=== PATIENT | female | born 1940 | race Caucasian/White ===

== ENCOUNTER → 2016-12-01 | Outpatient (CLI) | payer OTHER ==
[~2016-12-01] MED LIST: AMLO10TA2 PO; CITA20TA9 PO; CLB/200 PO; CRS/10 PO; DVN/160 PO; TRIATAB3 PO
[2016-12-01 11:45] LABS: HEMATOCRIT 33.6 % (37-47); MEAN CELL VOLUME 88.9 fL (80-100); MEAN CORPUSCULAR HEMOGLOBIN 28.8 pg (25-34); MEAN CORPUSCULAR HGB CONC 32.4 g/dl (32-36); MEAN PLATELET VOLUME 9.6 fL (7.4-10.4); PLATELET COUNT 248 K/uL (130-400); RED BLOOD COUNT 3.78 M/uL (4.2-5.4); WHITE BLOOD COUNT 5.77 K/uL (4.8-10.8)
[2016-12-01 11:48] LABS: URINE APPEARANCE CLEAR (CLEAR); URINE BILIRUBIN NEG (NEG); URINE COLOR YELLOW; URINE EPITHELIAL CELL AUTO >30 /lpf (0-5); URINE NITRITE NEG (NEG); URINE SPECIFIC GRAVITY 1.018 (1.000-1.030); UROBILINOGEN NEG (NEG)
[2016-12-01 11:55] LABS: MANUAL MICROSCOPIC REQUIRED? NO; REVIEW REQ? NO
[2016-12-01 11:57] LABS: BLOOD UREA NITROGEN 32 mg/dl (7-18); BUN/CREATININE RATIO 18.9 (10-20); CALCIUM 8.9 mg/dl (8.5-10.1); CARBON DIOXIDE 21 mmol/L (21-32); CHLORIDE 110 mmol/L (98-107); GLUCOSE 106 mg/dl (70-99); POTASSIUM 4.6 mmol/L (3.5-5.1); SODIUM 142 mmol/L (136-145)
[2016-12-01 11:58] LABS: PHOSPHORUS 2.8 mg/dl (2.5-4.9)
[2016-12-01 12:11] LABS: URINE PROTIEN/CREAT RATIO 0.1 (0-0.2); URINE TOTAL PROTEIN 19.6 mg/dl (0-11.9)
== END | disposition home or self-care (01) ==
LOC: C.LAB 09:55
PROVIDERS: ATTEND Internal Medicine Nephrology
DX: I12.9 Hypertensive chronic kidney disease with stage 1 through stage 4 chronic kidney disease, or unspecified chronic kidney disease (principal); N18.4 Chronic kidney disease, stage 4 (severe); D64.9 Anemia, unspecified; E55.9 Vitamin D deficiency, unspecified; R31.29 Other microscopic hematuria

== ENCOUNTER → 2017-06-01 | Outpatient (CLI) | payer OTHER ==
[2017-06-01 10:10] LABS: HEMATOCRIT 33.8 % (37-47); MEAN CELL VOLUME 90.1 fL (80-100); MEAN CORPUSCULAR HEMOGLOBIN 28.8 pg (25-34); PLATELET COUNT 302 K/uL (130-400); RED BLOOD COUNT 3.75 M/uL (4.2-5.4); WHITE BLOOD COUNT 6.68 K/uL (4.8-10.8)
[2017-06-01 10:10] LABS: URINE APPEARANCE CLEAR (CLEAR); URINE BILIRUBIN NEG (NEG); URINE COLOR YELLOW; URINE EPITHELIAL CELL AUTO 20-30 /lpf (0-5); URINE NITRITE NEG (NEG); URINE PH 5.5 (4.5-7.5); URINE SPECIFIC GRAVITY 1.016 (1.000-1.030); UROBILINOGEN NEG (NEG)
[2017-06-01 10:12] LABS: MANUAL MICROSCOPIC REQUIRED? NO; REVIEW REQ? YES
[2017-06-01 10:36] LABS: URINE PROTIEN/CREAT RATIO 0.1 (0-0.2); URINE TOTAL PROTEIN 15.6 mg/dl (0-11.9)
[2017-06-01 10:44] LABS: ALT/SGPT 20 U/L (12-78); BLOOD UREA NITROGEN 39 mg/dl (7-18); BUN/CREATININE RATIO 20.3 (10-20); CALCIUM 8.9 mg/dl (8.5-10.1); CARBON DIOXIDE 24 mmol/L (21-32); CHLORIDE 109 mmol/L (98-107); GLUCOSE 87 mg/dl (70-99); SODIUM 139 mmol/L (136-145)
[2017-06-01 10:47] LABS: ALKALINE PHOSPHATASE 79 U/L (45-117); AST/SGOT 23 U/L (15-37)
== END | disposition home or self-care (01) ==
LOC: C.LAB 08:52
PROVIDERS: ATTEND Internal Medicine Nephrology
DX: I12.9 Hypertensive chronic kidney disease with stage 1 through stage 4 chronic kidney disease, or unspecified chronic kidney disease (principal); N18.4 Chronic kidney disease, stage 4 (severe); D64.9 Anemia, unspecified; E55.9 Vitamin D deficiency, unspecified

== ENCOUNTER → 2017-06-08 | Outpatient (CLI) | payer OTHER ==
[2017-06-08 15:48] LABS: URINE APPEARANCE CLEAR (CLEAR); URINE BILIRUBIN NEG (NEG); URINE COLOR YELLOW; URINE NITRITE NEG (NEG); URINE SPECIFIC GRAVITY 1.019 (1.000-1.030); UROBILINOGEN NEG (NEG); ZZUR CULT IF INDIC CLEAN CATCH YES
[2017-06-08 15:49] LABS: MANUAL MICROSCOPIC REQUIRED? NO; REVIEW REQ? NO
--- NOTE | 2017-06-16 12:28 | CODING QUERY MEDICAL NECESSITY ---
CQSUPPORTING DIAGNOSIS NEEDED A supporting diagnosis is required for the test/procedure performed on this patient in order for us to be reimbursed by the patient's insurance. Please provide a supporting diagnosis for the following test/procedure listed below next to the test name along with your signature. *If there is no additional diagnosis for this patient that would support the following test/procedure please document that below next to the test/procedure. Test(s)/Procedure(s) that require a supporting diagnosis: DOS 06/08/17 URINE CULTURE TEST Provider Signature: Date: Thank you Lorie Hunt [facility] Information Management Once completed, please kindly fax back to [phone] For questions please call [phone]
== END | disposition home or self-care (01) ==
LOC: C.LAB1850 14:06
PROVIDERS: ATTEND Internal Medicine Nephrology
DX: N18.4 Chronic kidney disease, stage 4 (severe) (principal); N30.90 Cystitis, unspecified without hematuria

== ENCOUNTER → 2017-12-03 | Outpatient (CLI) | payer OTHER ==
[2017-12-03 10:41] LABS: ALBUMIN 3.6 gm/dl (3.4-5.0); BLOOD UREA NITROGEN 44 mg/dl (7-18); CALCIUM 8.7 mg/dl (8.5-10.1); CARBON DIOXIDE 21 mmol/L (21-32); CREATININE 2.11 mg/dl (0.60-1.20); GLUCOSE 86 mg/dl (70-99); POTASSIUM 4.8 mmol/L (3.5-5.1); SODIUM 139 mmol/L (136-145)
[2017-12-03 10:42] LABS: HEMATOCRIT 27.1 % (37-47); HEMOGLOBIN 8.6 g/dL (12.0-16.0); MEAN CELL VOLUME 82.1 fL (80-100); MEAN CORPUSCULAR HEMOGLOBIN 26.1 pg (25-34); MEAN CORPUSCULAR HGB CONC 31.7 g/dl (32-36); MEAN PLATELET VOLUME 8.8 fL (7.4-10.4); PLATELET COUNT 308 K/uL (130-400); RED CELL DISTRIBUTION WIDTH CV 15.2 % (11.5-14.5); RED CELL DISTRIBUTION WIDTH SD 45.9 fL (36.4-46.3); WHITE BLOOD COUNT 6.65 K/uL (4.8-10.8)
== END | disposition home or self-care (01) ==
LOC: C.LAB 09:06
PROVIDERS: ATTEND Internal Medicine Nephrology
DX: N18.4 Chronic kidney disease, stage 4 (severe) (principal); D64.9 Anemia, unspecified; R31.29 Other microscopic hematuria; E55.9 Vitamin D deficiency, unspecified; I12.9 Hypertensive chronic kidney disease with stage 1 through stage 4 chronic kidney disease, or unspecified chronic kidney disease

== ENCOUNTER → 2017-12-15 | Outpatient (CLI) | payer OTHER ==
[2017-12-21 10:35] LABS: FECAL OCCULT BLOOD #1 NEGATIVE (NEGATIVE); FECAL OCCULT BLOOD #2 NEGATIVE (NEGATIVE); FECAL OCCULT BLOOD #3 NEGATIVE (NEGATIVE)
== END | disposition home or self-care (01) ==
LOC: C.LABSPEC 10:17
PROVIDERS: ATTEND Internal Medicine Nephrology
DX: I12.9 Hypertensive chronic kidney disease with stage 1 through stage 4 chronic kidney disease, or unspecified chronic kidney disease (principal); N18.4 Chronic kidney disease, stage 4 (severe); D64.9 Anemia, unspecified; E55.9 Vitamin D deficiency, unspecified

== ENCOUNTER → 2017-12-21 | Outpatient (CLI) | payer OTHER ==
[2017-12-21 10:09] LABS: HEMATOCRIT 25.7 % (37-47); MEAN CELL VOLUME 81.8 fL (80-100); MEAN CORPUSCULAR HEMOGLOBIN 25.5 pg (25-34); MEAN CORPUSCULAR HGB CONC 31.1 g/dl (32-36); MEAN PLATELET VOLUME 8.5 fL (7.4-10.4); PLATELET COUNT 335 K/uL (130-400); RED CELL DISTRIBUTION WIDTH CV 15.1 % (11.5-14.5); RED CELL DISTRIBUTION WIDTH SD 45.1 fL (36.4-46.3); WHITE BLOOD COUNT 5.24 K/uL (4.8-10.8)
--- NOTE | 2018-01-22 11:56 | CODING QUERY MEDICAL NECESSITY ---
CQSUPPORTING DIAGNOSIS NEEDED A supporting diagnosis is required for the test/procedure performed on this patient in order for us to be reimbursed by the patient's insurance. Please provide a supporting diagnosis for the following test/procedure listed below next to the test name along with your signature. *If there is no additional diagnosis for this patient that would support the following test/procedure please document that below next to the test/procedure. Test(s)/Procedure(s) that require a supporting diagnosis: DOS 12/21/17 VITAMIN B12 TEST FOLIC ACID TEST Provider Signature: Date: Thank you Lorie Hunt Health Information Management Once completed, please kindly fax back to [phone] For questions please call [phone]
== END | disposition home or self-care (01) ==
LOC: C.LAB1850 09:02
PROVIDERS: ATTEND Internal Medicine Nephrology
DX: I12.9 Hypertensive chronic kidney disease with stage 1 through stage 4 chronic kidney disease, or unspecified chronic kidney disease (principal); N18.4 Chronic kidney disease, stage 4 (severe); D64.9 Anemia, unspecified; E55.9 Vitamin D deficiency, unspecified

== ENCOUNTER → 2018-02-22 | Outpatient (CLI) | payer OTHER ==
[2018-02-22 12:13] LABS: HEMATOCRIT 33.9 % (37-47); MEAN CELL VOLUME 86.3 fL (80-100); MEAN CORPUSCULAR HGB CONC 32.4 g/dl (32-36); MEAN PLATELET VOLUME 9.3 fL (7.4-10.4); PLATELET COUNT 257 K/uL (130-400); RED CELL DISTRIBUTION WIDTH CV 20.1 % (11.5-14.5); RED CELL DISTRIBUTION WIDTH SD 63.6 fL (36.4-46.3); RETIC COUNT % 0.7 % (0.5-2.0); WHITE BLOOD COUNT 5.41 K/uL (4.8-10.8)
[2018-02-22 12:19] LABS: ALBUMIN 3.7 gm/dl (3.4-5.0); BLOOD UREA NITROGEN 38 mg/dl (7-18); CALCIUM 8.9 mg/dl (8.5-10.1); CARBON DIOXIDE 19 mmol/L (21-32); CREATININE 1.82 mg/dl (0.60-1.20); GLUCOSE 106 mg/dl (70-99); SODIUM 142 mmol/L (136-145)
[2018-02-22 12:24] LABS: PHOSPHORUS 3.1 mg/dl (2.5-4.9); TRANSFERRIN 248 mg/dl (200-360)
== END | disposition home or self-care (01) ==
LOC: C.LAB 10:36
PROVIDERS: ATTEND Internal Medicine Nephrology
DX: I12.9 Hypertensive chronic kidney disease with stage 1 through stage 4 chronic kidney disease, or unspecified chronic kidney disease (principal); N18.4 Chronic kidney disease, stage 4 (severe); D64.9 Anemia, unspecified; E55.9 Vitamin D deficiency, unspecified

== ENCOUNTER 2019-01-03 05:03 | Inpatient (IN) ==
--- NOTE | 2018-12-16 16:09 | Anesthesiology Consultation ---
Date of Service December 16, 2018 Assessment & Plan (1) Encounter for pre-operative examination: Chart Review Chart Review: Acceptable Risk for Surgery and Patient NOT seen in Pre Admission Testing History Surgery Operation Date: 01/03/19 07:00 Proposed Procedures p Right Total Knee Arthroplasty - Michael Ferro MD Height/Weight Height: 5 ft 5 in Weight: 92.533 kg Allergies Allergy/AdvReac Type Severity Reaction Status Date / Time No Known Drug Allergies Allergy Unknown . Verified 11/18/18 13:05 grass pollen-perennial rye, AdvReac Unknown "ITCHY Verified 11/18/18 13:05 standar EYES" pollen extracts AdvReac Unknown "POLLEN" Verified 11/18/18 13:05 Medications Home Medications Medication Instructions Recorded Confirmed Last Taken amlodipine 10 mg PO 1200 08/05/18 11/18/18 Unknown atorvastatin 20 mg PO 1200 08/05/18 11/18/18 Unknown buspirone 10 mg PO BID 08/05/18 11/18/18 Unknown citalopram 20 mg PO HS 08/05/18 11/18/18 Unknown ergocalciferol (vitamin D2) 50,000 unit PO MONTHLY 08/05/18 11/18/18 Unknown ferrous sulfate [iron] 325 mg PO 1200 08/05/18 11/18/18 Unknown loratadine 10 mg PO QAM 08/05/18 11/18/18 Unknown acetaminophen [Tylenol Extra 2,000 mg PO BID PRN 11/18/18 11/18/18 Unknown Strength] Past Medical History Medical History Anemia Anxiety Asthma Bronchitis 07/2018 Chronic kidney disease STAGE III Depression GERD (gastroesophageal reflux disease) Hiatal hernia Hyperlipidemia Hypertension Obesity Pneumonia 07/2018 Past Surgical History Surgical History History of cataract surgery BILATERAL History of colonoscopy History of cystoscopy History of shoulder surgery LEFT History of total knee replacement LEFT TKA= 04/14/18= SAB X 1 ATTEMPT + PNB AT [facility] Social History Smoking Status: Never smoker Do You Dip or Chew Tobacco: No Hx Alcohol Use: No Hx Substance Use: No substance use type: does not use Testing Electrocardiogram Date: 04/15/18 Findings: + NSR @ (65) Chest X-Ray Date: 03/30/18 Findings: + NAD Stable hiatal hernia. Stress Test Date: 04/07/18 Type: DSE Negative DSE/stress EKG for ischemia at 93%MPHR. No chest pain. mild cLVH. No RWMA. No significant valvular disease. Laboratory Results 11/22/18 WBC 4.38 H/H 12.8/39.9 PLATELETS 263 SODIUM 139 POTASSIUM 4.3 CHLORIDE 109 CO2 26 BUN 32 CREATININE 1.57 GLUCOSE 85
--- NOTE | 2019-01-02 15:51 | History and Physical Report ---
DATE OF ADMISSION: 01/03/2019 CHIEF COMPLAINT: Chronic right knee pain. HISTORY OF PRESENT ILLNESS: This is a 78-year-old female patient of Dr. Ferro'maximo complaining of chronic right knee pain and instability, longstanding, now progressively getting worse. The patient has failed conservative treatment including acetaminophen, intra-articular injections and the use of a scooter. She has increased pain with weightbearing activities and her pain does interfere with her activities of daily living. She has been diagnosed with end-stage osteoarthritis per clinical and radiographic exam and wishes to proceed with a right total knee arthroplasty. PAST MEDICAL HISTORY: Hypertension, hypercholesterolemia, asthma, rheumatoid arthritis, osteoarthritis, acid reflux, obesity. SOCIAL HISTORY: Nonsmoker, nondrinker. PAST SURGICAL HISTORY: Bilateral knee surgeries in the past. FAMILY HISTORY: Noncontributory. REVIEW OF SYSTEMS: Chronic right knee pain and instability. Otherwise, denies any shortness of breath, chest pain, nausea, vomiting or any other joint complaints. MEDICATIONS: Citalopram 20 mg daily, amlodipine 10 mg daily, triamterene/hydrochlorothiazide 37.5/25 daily, buspirone 10 mg twice daily, Avapro 150 mg daily, vitamin B2 50,000 units daily, ferrous sulfate 325 daily, atorvastatin 20 mg daily. ALLERGIES: No known drug allergies. PHYSICAL EXAMINATION: GENERAL: Well-developed, well-nourished 78-year-old female in no acute distress. She is alert and oriented x3 and pleasant. HEENT: Normocephalic, atraumatic. Extraocular motions are intact. Pupils are equal and reactive to light. HEART: Regular rate and rhythm, no murmurs. LUNGS: Clear. ABDOMEN: Soft, nontender, bowel sounds present. EXTREMITIES: Right knee reveals a mild effusion. She has limited range of motion of 0-90. She has a varus deformity with medial joint line tenderness. She has 5/5 strength with pain. NEUROLOGIC: Neurovascularly, she is intact in her right lower extremity. DIAGNOSES: Right knee end-stage osteoarthritis, hypertension, hypercholesterolemia, asthma, rheumatoid arthritis, osteoarthritis, acid reflux, and obesity. PLAN: The patient was advised of her diagnosis. Indications, risks, benefits, postop course have all been reviewed. The patient wished to proceed with right total knee arthroplasty. Necessary consent forms, preoperative testing and clearances will be obtained.
[2019-01-03] MEDS ORDERED: ROPIVACAINE 0.5% HCL/PF 150 MG, BUPIVACAINE 0.5% MPF 30 ML, EPINEPHrine 30MG/30ML (OR U... INFIL SCH (06:00)
[2019-01-03] MEDS ORDERED: SODIUM CHLORIDE 0.9% 1000ML IV SCH (06:00)
[2019-01-03] MEDS ORDERED: LR 500ML BOLUS, THEN 15ML/HR IV SCH (06:00)
[2019-01-03] MEDS ORDERED: CEFAZOLIN 2000MG 2,000 MG/15 ML SYR IV SCH (06:00)
[2019-01-03] MEDS ORDERED: BACITRACIN INJ 50,000 UNIT VIAL ONE (06:31)
[2019-01-03] MEDS ORDERED: POVIDONE-IODINE OP SOLN 30 ML BTL ONE (06:31)
[2019-01-03] MEDS ORDERED: fentaNYL citrate 100 MCG/2 ML VIAL ONE (06:34)
[2019-01-03] MEDS ORDERED: MIDAZOLAM HCL 1 MG/ML 2ML VIAL ONE (06:34)
[2019-01-03] MEDS ORDERED: BUPIVACAINE 0.5 % 5 MG/1 ML PF 10ML VIAL ONE (06:42)
[2019-01-03] MEDS ORDERED: DEXAMETHASONE SOD INJ 4 MG/ML VIAL ONE (06:43)
[2019-01-03] MEDS ORDERED: BUPIVACAINE/EPINEPHRINE 0.5% MPF 1:200,000 30 ML VIAL ONE (06:43)
[2019-01-03] MEDS ORDERED: LIDOCAINE HCL 2% 2 ML VIAL/AMP(20MG/ML) INFIL ONE (06:45)
[2019-01-03] MEDS ORDERED: PROPOFOL IV EMULSION 10 MG/ML 20 ML VIAL IV ONE ×2 (06:46→08:59)
[2019-01-03] MEDS ORDERED: fentaNYL citrate 100 MCG/2 ML VIAL IV PRN (06:52)
[2019-01-03] MEDS ORDERED: ONDANSETRON INJ 2 MG/ML 2 ML VIAL IV PRN ×2 (06:52→10:34)
[2019-01-03] MEDS ORDERED: ePHEDrine sulfate 50 MG/ML AMP IV PRN (06:52)
[2019-01-03] MEDS ORDERED: ATROPINE SULFATE 0.1 MG/ML 10ML SYR IV PRN (06:52)
[2019-01-03] MEDS ORDERED: PROMETHAZINE HCL 6.25 MG in SODIUM CHLORIDE 0.9% 50 ML IV PRN (06:52)
--- NOTE | 2019-01-03 07:07 | History & Physical Bridge Note ---
Date of Service January 03, 2019 History & Physical Bridge Note I have examined the patient, reviewed the History & Physical and in the interval since the performance of the History & Physical I have noted the following changes of clinical significance: no changes noted
[2019-01-03] MEDS ORDERED: CEFAZOLIN 2,000 MG/15 ML IV PUSH IV ONE (07:13)
[2019-01-03] MEDS ORDERED: TRANEXAMIC ACID 1,000 MG in 0.9 % SODIUM CHLORIDE 100 ML IV ONE (07:15)
[2019-01-03] MEDS ORDERED: PHENYLEPHRINE 100MCG/ML 5ML SYR ONE (07:39)
[2019-01-03] MEDS ORDERED: ONDANSETRON INJ 2 MG/ML 2 ML VIAL ONE (08:24)
--- NOTE | 2019-01-03 08:50 | Post Operative Brief Note ---
Immediate Post Op Note v1 Date of Surgery January 03, 2019 Pre & Post Diagnosis Operation Date: 01/03/19 07:00 Pre-Op Diagnosis: Right Knee Degenerative Joint Disease Post-Op Diagnosis: Right Knee Degenerative Joint Disease Procedure Operation Date: 01/03/19 07:00 Actual Procedures p Right Total Knee Arthroplasty(Right) - Michael Ferro MD Surgeon Michael Ferro MD Infection Control Specialist Lyle MANCIA Estimated Blood Loss 5 Findings Consistent with Post-Op Diagnosis Specimens bone cuts Drains Hemovac Drain Anesthesia Type Spinal MAC Complications none Disposition Accompanied Patient To Recovery: No Disposition: Recovery Room Overlapping Procedure I was present for: the critical portions of procedure.
--- NOTE | 2019-01-03 10:23 | Anesthesiology Progress Note ---
Date of Service January 03, 2019 Anesthesia Post Procedure Vital Signs Vital Signs: Temp Pulse Pulse Resp BP Pulse Ox 01/03/19 10:15 66 16 148/62 H 97 01/03/19 10:05 37.8 C H 66 16 134/65 97 01/03/19 09:55 66 16 141/59 H 97 01/03/19 09:45 66 16 140/69 97 01/03/19 09:35 68 16 125/74 97 01/03/19 09:26 37.2 C 72 16 127/71 96 01/03/19 05:34 36.7 C 71 20 187/77 H 95 Pain Intensity Right Knee: Pain Intensity: 8 Notes Mental Status: alert / awake / arousable Patient Amnestic to Procedure: Yes Nausea / Vomiting: adequately controlled Pain: adequately controlled Airway Patency, RR, SpO2: stable & adequate BP & HR: stable & adequate Hydration State: stable & adequate Neuraxial Anesthesia: was administered and sensory block is resolving Anesthetic Complications: no major complications apparent
--- NOTE | 2019-01-03 10:31 | XRay Report ---
TWO VIEWS RIGHT KNEE CLINICAL HISTORY: Postoperative examination. FINDINGS: AP and crosstable lateral portable views of the right knee are obtained. A right knee arthr oplasty is in near anatomic alignment. There has been undersurface remodeling of the patella. No acut e fracture is seen. There are expected postoperative changes around the knee including skin clips, a surgical drain, soft tissue edema, and subcutaneous gas. IMPRESSION: Expected postoperative changes status post right knee arthroplasty. No acute fracture is seen. Electronically signed by: Lv Scruggs M.D. 01/03/2019 10:30 AM
[2019-01-03] MEDS ORDERED: NALOXONE HCL 0.4 MG/1 ML VIAL/CARP IV PRN (10:34)
[2019-01-03] MEDS ORDERED: TRAMADOL HCL 50 MG TABLET PO PRN (10:34)
[2019-01-03] MEDS ORDERED: BISACODYL 10 MG SUPP PR PRN (10:34)
[2019-01-03] MEDS ORDERED: HYDROmorphone INJ 0.5 MG/0.5 ML SYR IV PRN (10:34)
[2019-01-03] MEDS ORDERED: MAGNESIUM HYDROXIDE SUSP 30 ML UDC PO PRN (10:34)
[2019-01-03] MEDS: SODIUM CHLORIDE 0.9% 1000ML 1,000 ML IV SCH ×2 (11:12→19:41)
[2019-01-03] MEDS: OXYCODONE HCL IR 5 MG TAB (IMMEDIATE RELEASE) PO PRN ×2 (11:15→23:49)
[2019-01-03] MEDS: ATORVASTATIN 20 MG TAB PO SCH (12:39)
[2019-01-03] MEDS: FERROUS SULFATE 325 MG TAB PO SCH (12:39)
[2019-01-03] MEDS: AMLODIPINE BESYLATE 5 MG TAB PO SCH (12:40)
[2019-01-03] MEDS: ACETAMINOPHEN 500 MG TAB PO SCH ×2 (13:55→22:24)
[2019-01-03] MEDS: CEFAZOLIN 2000MG 2,000 MG/15 ML SYR IV SCH ×2 (14:37→22:25)
--- NOTE | 2019-01-03 16:03 | Operative Report ---
Post Operative Report Pre & Post Diagnosis Operation Date: 01/03/19 07:00 Pre-Op Diagnosis: Right Knee Degenerative Joint Disease Post-Op Diagnosis: Right Knee Degenerative Joint Disease Procedure Operation Date: 01/03/19 07:00 Actual Procedures p Right Total Knee Arthroplasty(Right) - Michael Ferro MD Surgeon Michael Ferro MD Partner Lyle MANCIA Estimated Blood Loss 5 Findings Consistent with Post-Op Diagnosis Specimens Bone cuts Drains 2 Hemovac Anesthesia Type Spinal MAC Complications none Disposition Accompanied Patient To Recovery: No Disposition: Recovery Room Indications 78-year-old female with chronic progressive osteoarthritis in her right knee. She is a varus knees [id number] medial compartment but she has tricompartmental osteoarthritis. She has very limited range of motion she is failed all conservative management. She has had a successful left knee replacement in the past. Description of Procedure Patient taken to the operating room the size under spinal MAC regional block anesthesia. Patient was placed supine on the operating table. A pneumatic tourniquet was placed about the right obese upper thigh. The right lower extremity was prepped and draped in sterile fashion. Knee exam demonstrated very stiff knee flexion contracture of 20 degrees with passive flexion and 90 only.. The leg was elevated exsanguinated with an Esmarch bandage and pneumatic tourniquet was raised to 350 millimeters of mercury. Skin incised sharply in longitudinal fashion. Subcutaneous flaps elevated. Incision was made through the medial retinaculum extending up in the mid third of the quadriceps tendon and down to the medial tibial tubercle. Intra-articular findings demonstrated severe tricompartmental DJD ACL tear [id number] medial compartment patellofemoral joint tricompartmental osteophytes. The [employer] triathlon total knee arthroplasty system was used. To expose the knee the infrapatellar fat pad was resected. The meniscal remnants and cruciate ligaments were resected. The anterior fat pad over the femur in the area of the anterior flange of the femoral component was resected. Lateral synovial bands release. The femur was exposed. An intramedullary drill hole was made into the canal. A guide neto was placed. Distal femoral cutting guide was adjusted to resect a 5 degree valgus cut with 10 millimeters distal femur resected. The knee was extended and a subperiosteal peel lateral release was performed around the patella. Patella width was measured and width was reproduced using a freehand cut technique and a 31 patella component. The 3 drill holes were made and the excess lateral facet was beveled off to prevent any impingement. Attention was taken back to the femur which was exposed with retractors and the femoral sizing guide was pinned in position. The drill holes were placed in 3 of external rotation to match epicondylar axis. Femur sized for a 5 component. The 4-in-1 cutting block was placed and then the anterior posterior and chamfer cuts are made. The tibia was then subluxed. The external tibial cutting guide was just to make a perpendic ular cut to the long axis of the tibia below the most deficient bone loss side. A lamina mental health assistant was used and the flexion extension gaps were balanced. All posterior osteophytes removed. All meniscal remnants were resected. The tibia exposed and the trial tibial component size 4 was externally rotated in line with the tibial tubercle and pinned in position. The punch for stem was used. The notch cutting device was centered appropriately and the femoral notch cut was made. The femoral trial was inserted. Trial tibial inserts were placed and size 13 posterior stabilized gave balanced ligaments through flexion and extension. Patella tracking was assessed. The patella tracked centrally. The trial components were then removed and the orthomix anesthetic cocktail was injected per protocol. The knee was then copiously irrigated with pulsatile lavage antibiotic solution. Final components were then cemented with Simplex cement. Final components were [place] triathlon posterior stabilized right size 5 femur, size 4 primary tibial baseplate, 4 x 13 X3 polyethylene tibial bearing, S 31 x 9 mm X3 symmetrical patella. While the cement cured the Betadine soak was used per protocol. After cement cured further pulsatile lavage irrigation performed and 2 Hemovac drains were brought out laterally. The quadriceps tendon and medial retinaculum were closed with figure of 8 #1 Vicryl sutures. The knee was taken through full range of motion and the repair was secure. The subcutaneous tissues were closed with 2-0 Vicryl sutures. Skin was closed with abel. Sterile Silverlon dressings were applied. Patient procedure well. Lyle MANCIA was my physician railways assistant who assisted in patient positioning prepping and draping,leg positioning ,soft tissue retraction and instrument management and participated in the closing and will participate in postoperative care of the patient. The patient tolerated the procedure well. I attest to the content of the Intraoperative Record and any orders documented therein. Any exceptions are noted below.
[2019-01-03] MEDS: ASPIRIN 81 MG ECTAB PO SCH (20:53)
[2019-01-03] MEDS: DOCUSATE SODIUM 100 MG CAP PO SCH (20:53)
[2019-01-03] MEDS ORDERED: SENNA 8.6 MG TAB PO SCH (21:00)
[2019-01-03] MEDS ORDERED: CITALOPRAM 20 MG TAB PO SCH (21:00)
[2019-01-04] MEDS: ACETAMINOPHEN 500 MG TAB PO SCH ×2 (05:38→14:20)
[2019-01-04 06:07] LABS: Hematocrit (blood only) 31.3 % (37-47); Hemoglobin 10.1 g/dL (12.0-16.0); Mean Corpuscular Hgb Conc 32.3 g/dL (32-36); Mean Corpuscular Volume 91.8 fL (80-100); Mean Platelet Volume 8.8 fL (7.4-10.4); Platelet Count 189 K/uL (130-400); RDW Coefficient of Variation 13.6 % (11.5-14.5); RDW Standard Deviation 45.3 fL (36.4-46.3); Red Blood Count 3.41 M/uL (4.2-5.4); White Blood Count 8.92 K/uL (4.8-10.8)
[2019-01-04 06:41] LABS: Calcium 7.7 mg/dl (8.5-10.1); Creatinine Clr Calc Pharmacy 33.6 ml/min; Est GFR (African American) 35.4; Est GFR (Non-African American) 30.6; Potassium 4.6 mmol/L (3.5-5.1)
--- NOTE | 2019-01-04 08:00 | Anesthesiology Progress Note ---
Date of Service January 04, 2019 Anesthesia Post Procedure Vital Signs Vital Signs: Temp Pulse Pulse Resp BP Pulse Ox 01/04/19 07:25 36.9 C 64 15 134/64 97 01/04/19 03:34 36.6 C 63 16 133/66 99 01/03/19 23:00 36.8 C 68 16 124/68 96 01/03/19 19:53 36.8 C 63 18 120/69 97 01/03/19 15:17 36.8 C 67 18 122/76 95 01/03/19 13:30 73 17 149/69 H 95 01/03/19 12:30 36.6 C 66 16 150/79 H 95 01/03/19 11:41 68 16 146/78 H 92 01/03/19 11:02 36.7 C 68 16 145/73 H 96 01/03/19 10:30 36.8 C 69 16 146/76 H 94 01/03/19 10:15 66 16 148/62 H 97 01/03/19 10:05 37.8 C H 66 16 134/65 97 01/03/19 09:55 66 16 141/59 H 97 01/03/19 09:45 66 16 140/69 97 01/03/19 09:35 68 16 125/74 97 01/03/19 09:26 37.2 C 72 16 127/71 96 Pain Intensity Right Knee: Pain Intensity: 0 Notes Mental Status: alert / awake / arousable Nausea / Vomiting: adequately controlled Pain: adequately controlled Airway Patency, RR, SpO2: stable & adequate BP & HR: stable & adequate Hydration State: stable & adequate Neuraxial Anesthesia: was administered and sensory block resolved Anesthetic Complications: no major complications apparent and Pt Satisfied with anesthetic care
--- NOTE | 2019-01-04 08:03 | Orthopedic Progress Note ---
Date of Service January 04, 2019 Assessment & Plan (1) Left knee DJD: POD 1 s/p Right TKA PT/OT ; wbat DVT prophylaxis - ASA,SCD's,NELSON's Pain management - Tylenol,Dilaudid,Oxyodone DC plans - Planning for OPPT upon DC Subjective POD 1 s/p Right TKA Pt lying in bed. Awake,alert, oriented. States she slept well last night. No complaints. Pain controlled. Denies SOB/CP/LH. Physical Exam Vital Signs (Past 24 Hours): Last Vital Signs Temp 36.9 C 01/04/19 07:25 Pulse 64 01/04/19 07:25 Resp 15 01/04/19 07:25 BP 134/64 01/04/19 07:25 Pulse Ox 97 01/04/19 07:25 Physical Exam: Dressings are C/D/I. Calves soft, NT. NV intact. Toes mobile. HV with 75ml latest shift. Results & Data Laboratory Results 01/04/19 01/04/19 Range/Units 05:35 05:35 WBC 8.92 (4.8-10.8) K/uL RBC 3.41 L (4.2-5.4) M/uL Hgb 10.1 L (12.0-16.0) g/dL Hct 31.3 L (37-47) % MCV 91.8 (80-100) fL MCH 29.6 (25-34) pg MCHC 32.3 (32-36) g/dL RDW Std Deviation 45.3 (36.4-46.3) fL RDW Coeff of Gary 13.6 (11.5-14.5) % Plt Count 189 (130-400) K/uL MPV 8.8 (7.4-10.4) fL Sodium 142 (136-145) mmol/L Potassium 4.6 (3.5-5.1) mmol/L Chloride 113 H (98-107) mmol/L Carbon Dioxide 23 (21-32) mmol/L Anion Gap 6.0 (3-11) BUN 38 H (7-18) mg/dl Creatinine 1.59 H (0.6-1.2) mg/dl Est Cr Clr Drug Dosing 33.6 ml/min Est GFR ( Amer) 35.4 Est GFR (Non-Af Amer) 30.6 BUN/Creatinine Ratio 24.0 H (10-20) Glucose 132 H (70-99) mg/dl Calcium 7.7 L (8.5-10.1) mg/dl
[2019-01-04] MEDS: DOCUSATE SODIUM 100 MG CAP PO SCH (08:46)
[2019-01-04] MEDS: ASPIRIN 81 MG ECTAB PO SCH (08:47)
[2019-01-04] MEDS: OXYCODONE HCL IR 5 MG TAB (IMMEDIATE RELEASE) PO PRN ×2 (08:50→15:51)
[2019-01-04] MEDS ORDERED: LORATADINE 10 MG TAB PO SCH (09:00)
[2019-01-04] MEDS ORDERED: MULTIVITAMIN TAB PO SCH (09:00)
[2019-01-04] MEDS: FERROUS SULFATE 325 MG TAB PO SCH (12:26)
[2019-01-04] MEDS: ATORVASTATIN 20 MG TAB PO SCH (12:27)
[2019-01-04] MEDS: AMLODIPINE BESYLATE 5 MG TAB PO SCH (12:29)
--- NOTE | 2019-01-05 06:19 | Discharge Summary ---
Date of Service January 19, 2019 Discharge Data Consultations 01/03/19 10:34 Consult Case Management - Discharge Planning Routine Procedures Performed Operation Date: 01/03/19 07:00 Actual Procedures p Right Total Knee Arthroplasty(Right) - Michael Ferro MD
--- NOTE | 2019-01-18 21:15 | Discharge Summary ---
HISTORY OF PRESENT ILLNESS: This is a 78-year-old female patient of Dr. Ferro's, complaining of chronic right knee pain, longstanding, now progressively getting worse. She was diagnosed with end-stage osteoarthritis per clinical and radiographic exams. The patient elected to proceed with a right total knee arthroplasty. PAST MEDICAL HISTORY: Hypertension, hypercholesterolemia, asthma, rheumatoid arthritis, osteoarthritis, acid reflux, and obesity. POSTOPERATIVE COURSE: The patient underwent a right total knee arthroplasty on 01/03/2019. She was followed closely with physical therapy, DVT prophylaxis in the form of aspirin and pain medications. The patient did very well postoperatively and was discharged home on postoperative day #1. PHYSICAL EXAMINATION ON DISCHARGE: Right knee Silverlon dressing was clean, dry and intact. There was no redness or drainage. She had no calf tenderness. Negative Homans sign. Neurologically, neurovascularly she is intact in her right lower extremity. DIAGNOSES: Right knee total knee arthroplasty, hypertension, hypercholesterolemia, asthma, rheumatoid arthritis, osteoarthritis, acid reflux, and obesity. PLAN: The patient was discharged home with outpatient physical therapy. She will continue her preadmission medications with the addition of aspirin twice daily for DVT prophylaxis and pain medication. The patient will follow up with Dr. Ferro as scheduled as an outpatient.
[2019-02-02] MEDS ORDERED: ERGOCALCIFEROL 50,000 UNITS CAP PO SCH (09:00)
== END 2019-01-04 15:15 | disposition home or self-care (01) | DRG 470 ==
LOC: ASU 05:03 → 3E 09:33